=== PATIENT | male | born 1950 | race Caucasian/White ===

== ENCOUNTER 2017-12-21 18:40 | Emergency (ER) | payer MEDICARE, BC ==
[2017-12-21 18:59] VITALS: BP 128/91
--- NOTE | 2017-12-21 19:41 | EDM.PDOC ---
ED HPI GENERAL MEDICAL PROBLEM - General Chief Complaint: Back Pain or Injury Stated Complaint: RIGHT SIDE RIB PAIN Time Seen by Provider: 12/21/17 19:05 Source of Information: Reports: Patient History Limitations: Reports: No Limitations - History of Present Illness INITIAL COMMENTS - FREE TEXT/NARRATIVE: This is a 67-year-old male. He was climbing down from his tractor with his hands full of stools and he missed the steps and slid down to tractor striking his right lower back and right lower ribs on a ledge on the tractor. He has severe pain in the right lower ribs. There is an abrasion there and swelling there on that right flank. He has urinated since this occurred denies any redness to the urine but we will check this. He is able to breathe though breathing causes a sharp pain in the right lower rib area. He is able to move and turn but he does it in block style due to the soreness in his right ribs. He denies hitting his head he denies any extremity injury. Patient is up-to- date with his Tdap. Right Lower Back Pain Score (Numeric/FACES): 10 - Related Data Allergies Allergy/AdvReac Type Severity Reaction Status Date / Time No Known Allergies Allergy Verified 07/08/16 05:24 Home Meds: Home Meds Meloxicam 7.5 mg PO DAILY PRN 03/12/15 [History] Levothyroxine Sodium [Synthroid] 125 mcg PO DAILY 03/22/16 [History] Hydrocodone/Acetaminophen [Hydrocodon-Acetaminophen 5-325] 1 each PO Q6H PRN # 20 tablet 12/21/17 [Rx] Methotrexate 5 tab PO TU 12/21/17 [History] Orphenadrine [Norflex] 100 mg PO BID PRN #20 tab.er 12/21/17 [Rx] Past Medical History Musculoskeletal History: Reports: Arthritis, Back Pain, Chronic, RA Endocrine/Metabolic History: Reports: Hypothyroidism - Past Surgical History GI Surgical History: Reports: Colonoscopy Musculoskeletal Surgical History: Reports: Other (See Below) Other Musculoskeletal Surgeries/Procedures:: neck fusion C5-6-7; lower back Social & Family History - Tobacco Use Smoking Status *Q: Never Smoker Second Hand Smoke Exposure: No - Caffeine Use Caffeine Use: Reports: Soda - Alcohol Use Days Per Week of Alcohol Use: 0 - Recreational Drug Use Recreational Drug Use: No ED ROS GENERAL - Review of Systems Review Of Systems: See Below Constitutional: Denies: Fever, Chills HEENT: Reports: No Symptoms Respiratory: Reports: Shortness of Breath. Denies: Wheezing, Cough Cardiovascular: Denies: Chest Pain Endocrine: Reports: No Symptoms GI/Abdominal: Reports: No Symptoms : Reports: No Symptoms Musculoskeletal: Reports: Other (History of arthritis) Skin: Reports: Other (Abrasion right flank) Neurological: Reports: No Symptoms Psychiatric: Reports: No Symptoms Hematologic/Lymphatic: Reports: No Symptoms Immunologic: Reports: No Symptoms ED EXAM,LOWER BACK PAIN/INJURY - Physical Exam Exam: See Below Exam Limited By: No Limitations General Appearance: Alert, WD/WN, No Apparent Distress Eye Exam: Bilateral Eye: Normal Inspection Ears: Normal External Exam Nose: Normal Inspection Throat/Mouth: Normal Inspection, Normal Lips, Normal Voice, No Airway Compromise Head: Normocephalic Neck: Supple Respiratory/Chest: No Respiratory Distress, Lungs Clear, Normal Breath Sounds, Other (Right posterior lower ribs very tender on palpation but I don't feel any crepitus at this time) Cardiovascular: Regular Rate, Rhythm, No Murmur GI/Abdominal: Soft, Non-Tender Back Exam: Decreased Range of Motion, Other (He has no abrasion in the right flank with some swelling underneath that abrasion, no lacerations, no left- sided trauma) Extremities: Normal Inspection, Normal Range of Motion. No: Pedal Edema Neurological: Alert, Normal Mood/Affect, Oriented x 3, Other (Stiff gait secondary to right flank pain) Psychiatric: Normal Affect, Normal Mood Skin Exam: Warm, Dry Course - Vital Signs Last Recorded V/S: Last Vital Signs Temp 98.2 F 12/21/17 18:57 Pulse 65 12/21/17 18:57 Resp 20 12/21/17 18:57 BP 128/91 H 12/21/17 18:57 Pulse Ox 99 12/21/17 18:57 - Orders/Labs/Meds Orders: Active Orders 24 hr Category Date Time Status Ribs 2V w Chest Rt [CR] Stat Exams 12/21/17 19:27 Taken Labs: Laboratory Tests 12/21/17 Range/Units 20:25 Urine Color Yellow (Yellow) Urine Appearance Clear (Clear) Urine pH 7.5 (5.0-8.0) Ur Specific [place] 1.020 (1.005-1.030) Urine Protein Trace H (Negative) Urine Glucose (UA) Negative (Negative) Urine Ketones 1+ H (Negative) Urine Occult Blood Negative (Negative) Urine Nitrite Negative (Negative) Urine Bilirubin Negative (Negative) Urine Urobilinogen 0.2 (0.2-1.0) Ur Leukocyte Esterase Negative (Negative) Urine RBC 0-5 (0-5) /hpf Urine WBC 0-5 (0-5) /hpf Ur Epithelial Cells 5-10 H (0-5) /hpf Urine Bacteria Rare (FEW) /hpf Urine Mucus Not seen (FEW) /hpf - Radiology Interpretation Free Text/Narrative:: X-ray of the ribs shows a 10th rib fracture or possibly a ninth rib fracture. - Re-Assessments/Exams Free Text/Narrative Re-Assessment/Exam: 12/21/17 20:26 I spoke to the patient and his significant other regarding the fractured ribs. We are awaiting the urine results to make sure there is no blood in the urine. 12/21/17 20:26 I did discuss with the patient the natural progression of rib fractures healing in 6-8 weeks and that during this time he just needs to be very careful. He may take the meloxicam to help with it but I'll also provide something for pain and spasms as well. We talked about sleeping in a recliner versus a bed whenever he tolerates is the best to do. Departure - Departure Time of Disposition: 20:47 Disposition: Home, Self-Care 01 Condition: Good Clinical Impression: Fracture of one rib, right side, initial encounter for closed fracture Flank abrasion Qualifiers: Encounter type: initial encounter Qualified Code(s): S30.811A - Abrasion of abdominal wall, initial encounter Contusion of flank and back Qualifiers: Encounter type: initial encounter Qualified Code(s): S30.1XXA - Contusion of abdominal wall, initial encounter - Discharge Information Prescriptions: Hydrocodone/Acetaminophen [Hydrocodon-Acetaminophen 5-325] 1 each PO Q6H PRN # 20 tablet PRN Reason: Pain Orphenadrine [Norflex] 100 mg PO BID PRN #20 tab.er PRN Reason: Spasms Instructions: Rib Fracture, Abrasion, [id number] Referrals: PCP,Not In Area [Primary Care Provider] - Forms: ED Department Discharge Additional Instructions: Gentle activity over the next 6-8 weeks, take the medicine for pain and spasms as needed, keep the abrasion clean and covered and dry but you may still shower , watch for infection, do not wrap your ribs since you can develop pneumonia when you wrap them, follow up with your family doctor in one to 2 weeks for recheck or sooner if there are problems, return to the ER if needed - My Orders Last 24 Hours: My Active Orders 12/21/17 19:27 Ribs 2V w Chest Rt [CR] Stat - Assessment/Plan Last 24 Hours: My Active Orders 12/21/17 19:27 Ribs 2V w Chest Rt [CR] Stat
--- NOTE | 2017-12-22 12:52 | CR ---
Chest and right ribs: Frontal view of the chest is obtained as well as three views of the right ribs. Comparison: Previous chest x-ray of 01/06/14. Heart size is normal. Tortuous thoracic aorta is seen. No acute parenchymal densities are seen. Previous cervical spine surgery is noted. Mild scoliosis is noted within the spine with degenerative change. Fracture is identified within the anterior 10th rib. Slight displacement is seen. No additional rib abnormality is appreciated. Impression: 1. Right lower rib fracture. 2. Other incidental findings. Diagnostic code #3
== END 2017-12-21 20:54 | disposition home or self-care (01) ==
LOC: JD.ED 18:40
DX: S22.31XA Fracture of one rib, right side, initial encounter for closed fracture (principal); S30.811A Abrasion of abdominal wall, initial encounter; S30.1XXA Contusion of abdominal wall, initial encounter; Z79.899 Other long term (current) drug therapy; E03.9 Hypothyroidism, unspecified; W17.89XA Other fall from one level to another, initial encounter
CPT/HCPCS: 71101-26-RT; 71101-RT; 81001; 99284

== ENCOUNTER 2023-01-30 17:25 | Emergency (ER) | payer MEDICARE, BC ==
[2023-01-30 17:48] VITALS: PULSE 71
[2023-01-30] MEDS ORDERED: Sodium Chloride 0.9% 10 ML Syringe FLUSH PRN (18:02)
[2023-01-30 18:19] LABS: BASOPHILS ABSOLUTE AUTO 0.03 K/mm3 (0.01-0.08); BASOPHILS PERCENT AUTO 0.5 % (0.1-1.2); EOSINOPHILS ABSOLUTE AUTO 0.77 K/mm3 (0.04-0.54); EOSINOPHILS PERCENT AUTO 13.7 (0.8-7.0); HEMATOCRIT 38.6 % (40.1-51.0); IMMATURE GRAN ABSOLUTE AUTO 0.01 K/mm3 (0.00-0.10); IMMATURE GRAN PERCENT AUTO 0.2 % (<=1.0); LYMPHOCYTES ABSOLUTE AUTO 0.92 K/mm3 (1.32-3.57); LYMPHOCYTES PERCENT AUTO 16.3 % (21.8-53.1); MEAN CORPUSCULAR HEMOGLOBIN 31.9 pg (25.7-32.2); MEAN CORPUSCULAR HGB CONC 33.7 g/dl (32.2-35.5); MEAN CORPUSCULAR VOLUME 94.8 fl (79.0-92.2); MEAN PLATELET VOLUME 8.4 fl (9.4-12.3); MONOCYTES ABSOLUTE AUTO 0.35 K/mm3 (0.30-0.82); MONOCYTES PERCENT AUTO 6.2 % (5.3-12.2); NEUTROPHILS ABSOLUTE AUTO 3.56 K/mm3 (1.78-5.38); NEUTROPHILS PERCENT AUTO 63.1 % (34.0-67.9); PLATELET COUNT,PLT 218 K/mm3 (163-337); RED BLOOD CELL COUNT 4.07 M/mm3 (4.63-6.08); WHITE BLOOD CELL COUNT,WBC 5.64 K/mm3 (4.23-9.07)
[2023-01-30 18:34] LABS: INR 1.02; PROTHROMBIN TIME 10.9 SECONDS (9.7-12.0)
[2023-01-30 18:35] LABS: PTT,PARTIAL THROMBOPLSTIN TIME 24.8 SECONDS (21.7-31.4)
[2023-01-30 18:46] LABS: A/G RATIO 1.4 (1-2); ALBUMIN 3.7 g/dl (3.4-5.0); ANION GAP 10.9 (5-15); BILIRUBIN TOTAL 1.5 mg/dL (0.2-1.0); CALCIUM 8.3 mg/dL (8.5-10.1); EST CRCL DRUG DOSING (CG) 58.08 mL/min; POTASSIUM,K 3.9 mEq/L (3.5-5.1); PROTEIN TOTAL,TP 6.4 g/dl (6.4-8.2)
[2023-01-30] MEDS ORDERED: Alum Hydrox/Mag Hydrox/Simeth 30 ML, Lidocaine 2% 15 ML PO ONE ×2 (19:20)
[2023-01-30 19:40] VITALS: BP 138/86
== END 2023-01-30 19:40 | disposition home or self-care (01) ==
LOC: JD.ED 17:25
DX: R10.13 Epigastric pain (principal); I25.2 Old myocardial infarction; E03.9 Hypothyroidism, unspecified; Z88.7 Allergy status to serum and vaccine; Z88.8 Allergy status to other drugs, medicaments and biological substances; Z79.82 Long term (current) use of aspirin; Z79.899 Other long term (current) drug therapy
CPT/HCPCS: 36415; 71045; 80053; 83735; 83880; 84484; 85025; 85610; 85730; 93005; 99284; A9270; J3490; 93010; 99283